=== PATIENT | male | born 1935 | race Caucasian/White ===

== ENCOUNTER 2016-07-22 12:57 | Inpatient (IN) | payer MEDICARE, OTHER ==
[~2016-07-22] VITALS: Ht 170.2 cm; Wt 67.0 kg
[~2016-07-22 12:57] MED LIST: AMLODIPINE10 MG OR; CEFTIN250 MG PO; FENOFIBRATE145 MG PO; FLOMAX0.4 MG OR; LORTAB 7.57.5 MG PO; NORCO1 TAB PO; NORVASC2.5 MG PO; PRILOSEC20 MG/CAP PO; UNKNOWN BP MED
--- NOTE | 2016-07-22 13:00 | NUR ---
ARRIVED VIA EMS ALERT AND RESPONSIVE
[2016-07-22 13:51] LABS: HEMATOCRIT 41.1 % (39.0-50.0); HEMOGLOBIN 13.5 g/dl (14.0-18.0); IMMATURE GRANULOCYTES 0.2 % (0.0-1.0); MEAN CELL VOLUME 94.7 fL CALC (80.0-100.0); MEAN CORPUSCULAR HGB 31.1 pG CALC (26.0-32.0); MEAN CORPUSCULAR HGB CONC 32.8 g/L CALC (32.0-36.0); NEUT# 3.78 thou/uL (1.82-7.42); RED BLOOD COUNT 4.34 mill/uL (4.70-6.10); RED CELL DISTRI WIDTH 13.2 % (11.5-15.5)
[2016-07-22] MEDS ORDERED: VICODIN HP1 TA1 PO (13:56)
[2016-07-22] MEDS ORDERED: SEROQUEL100 MG PO ×3 (13:57→13:59)
[2016-07-22] MEDS ORDERED: DONEPEZIL5 MG PO (14:00)
[2016-07-22] MEDS ORDERED: STOOL SOFTENER100 MG PO (14:01)
[2016-07-22 14:02] LABS: ALBUMIN 4.1 g/dL (3.2-5.0); ALKALINE PHOSPHATASE 46 u/l (38-126); ANION GAP 15 (6-22 (CALC)); BILIRUBIN, TOTAL 0.8 mg/dL (0.0-1.4); BUN 21 mg/dL (8-23); BUN/CREATININE RATIO 17 (12-20 (CALC)); CALCIUM 9.3 mg/dL (8.4-10.2); CARBON DIOXIDE 29 mmol/l (22-30); CHLORIDE 103 mmol/l (95-108); CREATININE 1.2 mg/dL (0.7-1.3); GFR 58 ML/MIN (>=60 (CALC)); GFR FOR AFR.AMER. > 60 ML/MIN (>=60 (CALC)); GLUCOSE 96 mg/dL (82-115); POTASSIUM 3.7 mmol/l (3.5-5.1); SGOT/AST 20 u/l (19-48); SGPT/ALT 21 u/l (11-66); SODIUM 143 mmol/l (137-146); TOTAL PROTEIN 7.9 g/dL (6.3-8.2)
--- NOTE | 2016-07-22 14:09 | NUR ---
PT TOLERATING IV FLUIDS WELL. ALERT AND PLEASANTLY CONFUSED. NOTED APPROX 2CM ROUND STAGE II ULCER TO COCCYX. SURROUNDIONG TISSUE PINK WITHOUT OPENING APPROX 8 CM IN DIAMETER
[2016-07-22 14:12] LABS: MYOGLOBIN 47 ng/mL (0 - 121)
[2016-07-22 14:18] LABS: PROTHROMBIN TIME 10.9 SECONDS (9.0-12.5)
[2016-07-22 14:55] LABS: URINE BILIRUBIN - DIPSTICK NEGATIVE (NEGATIVE); URINE BLOOD DIPSTICK NEGATIVE (NEGATIVE); URINE CLARITY CLEAR; URINE COLOR YELLOW; URINE GLUCOSE - DIPSTICK NEGATIVE (NEGATIVE); URINE KETONE NEGATIVE (NEGATIVE); URINE LEUK ESTERASE NEGATIVE (Negative); URINE NITRITE - DIPSTICK NEGATIVE (Negative); URINE PROTEIN - DIPSTICK NEGATIVE (NEG-TRACE)
--- NOTE | 2016-07-22 15:10 | NUR ---
PT SITTING UP IN BED. COMPLETED IV FLUIDS. VSS. NO C/O AT THIS TIME
--- NOTE | 2016-07-22 16:04 | NUR ---
AWARE OF PENDING ADMIT, AT BEDSIDE. NO DISTRESS NOTED
--- NOTE | 2016-07-22 17:02 | NUR ---
INCONTINENT OF URINE ,CLEANSED AND DRESSING APPLIED TO COCCYX. STATES SHE HAS BEEN PUTTING MEDICINE AND DUDERM TO AREA.
--- NOTE | 2016-07-22 17:32 | NUR ---
PT APPEARS NERVOUS AND AGITATED. AND NURSE ATTEMPTS TO CALM. MD AWARE
--- NOTE | 2016-07-22 18:58 | NUR ---
CALLED REPORT TO YESSENIA PARIKH. ADMINISTERED MED FOR ANXIETY ORDERED
--- NOTE | 2016-07-22 19:00 | NUR ---
ADMINISTERED 0.5MG ATIVAN IV ORDERED PER DR CABAN FOR AGITATION
--- NOTE | 2016-07-22 19:05 | NUR ---
REPORT RECEIVED CARE ASSUMED. PATIENT IS ADMITTED AND AWAITING TRANSPORT TO FLOOR. UNABLE TO TRANSPORT UNTIL RN ON MS HAVE COMPLETED THEIR CHANGE OF SHIFT.
--- NOTE | 2016-07-22 19:45 | NUR ---
PATIENT TO FLOOR VIA STRETCHER, MONITOR AND RN.
[2016-07-22 20:38] VITALS: BP 140/62
--- NOTE | 2016-07-22 20:38 | NUR ---
PT.ARRIVED TO FLOOR ACCOMPANIED BY ED NURSE; PT.UNABLE TO AMBULATE FROM STRETCHER TO BED; PT. MOVED TO WEIGH BED FOR PROPER WEIGHING AND ALARM MONITORING DUE TO WEAKNESS AND CONFUSION; PT.ASSESSED: LOC TO NAME/ ONLY, PT.IS CONFUSED ABOUT WHERE HE IS AND WHAT IS HAPPENING AROUND HIM, PT.V/S STABLE AT THIS TIME, LUNGS CLEAR, ABD.NON-TENDER AND ACTIVE, NEURO'S CLEAR AND STRONG PULSES, PT.SKIN IS CLEAR OTHER THAN PT. HAS ST.2 PRESSURE WOUND ON BUTTOCKS, I TOOK PICTURES, CLEANED OF INCONTINENCE AND COVERED W/DUODERM; BED ALARMS ON X2
--- NOTE | 2016-07-22 22:15 | NUR ---
PT.CONFUSED, WANTING TO LEAVE, ATTEMPTING TO LEAVE BED, PT.CALMED AND SETTLED BACK INTO BED, PROVIDED PO FLUIDS; WILL CONTINUE TO MONITOR
[2016-07-22 23:30] VITALS: BP 153/90
--- NOTE | 2016-07-23 00:30 | NUR ---
PT.CONFUSED, TRYING TO GET OUT OF BED, PT.PULLED OUT IV AND HAD A 3X3" BLOOD SPOT ON BED; PT. DOES NOT KNOW WHERE HE IS, PT.CLEANED OF INCONTINENCE, IV SITE CLEANED AND NEW SITE ACCESSED; PT.SETTLED BACK INTO BED THAT HAS BEEN CHANGED W/CLEAN GOWN; PT.ALSO REMOVED TELEMETRY LEADS/CONTACTS SO WE PLACED TELEMETRY ON BACK; WILL CONTINUE TO MONITOR.
--- NOTE | 2016-07-23 02:30 | NUR ---
PT.SETTING OFF BED ALARM ATTEMPTING "TO LEAVE," PT.TALKED TO, MEDICATED, OFFERED PO FLUIDS AND SETTLED BACK INTO BED, REPOSITIONED W/BED ALARMS X2; WILL CONTINUE TO MONITOR
--- NOTE | 2016-07-23 04:15 | NUR ---
PT.SLEEPING AT THIS TIME; NO APPARENT RESTLESSNESS OR DISTRESS AT THIS TIME; BED ALARM ON X2
[2016-07-23 04:30] VITALS: BP 160/67
[2016-07-23 06:20] LABS: HEMATOCRIT 45.1 % (39.0-50.0); HEMOGLOBIN 14.9 g/dl (14.0-18.0); MEAN CELL VOLUME 93.2 fL CALC (80.0-100.0); MEAN CORPUSCULAR HGB 30.8 pG CALC (26.0-32.0); RED BLOOD COUNT 4.84 mill/uL (4.70-6.10); RED CELL DISTRI WIDTH 13.1 % (11.5-15.5)
[2016-07-23 06:36] LABS: ANION GAP 18 (6-22 (CALC)); BUN 13 mg/dL (8-23); BUN/CREATININE RATIO 13 (12-20 (CALC)); CALCIUM 9.8 mg/dL (8.4-10.2); CARBON DIOXIDE 26 mmol/l (22-30); CHLORIDE 103 mmol/l (95-108); GFR > 60 ML/MIN (>=60 (CALC)); GFR FOR AFR.AMER. > 60 ML/MIN (>=60 (CALC)); GLUCOSE 80 mg/dL (82-115); MAGNESIUM 1.7 mg/dL (1.6-2.3); POTASSIUM 3.8 mmol/l (3.5-5.1); SODIUM 142 mmol/l (137-146)
--- NOTE | 2016-07-23 07:00 | NUR ---
SHIFT CHANGE REPORT FROM BERT CASAS SLEEPING IN SUPINE POSITION AT THIS TIME, BREATHING EVEN AND NON-LABORED, NO SIGN DISCOMFORT, TELE MONITOR IN PLACE, CALL AVELAR IN REACH, BED ALARM ON.
[2016-07-23 09:51] VITALS: BP 153/88
--- NOTE | 2016-07-23 10:14 | NUR ---
PT AWAKE, CONFUSED, RESPONDS INAPPROPRIATELY TO VERVAL STIMULI, SPOUSE VISITING AT THIS TIME, TEARY-EYED WHEN SPEAKING ABOUT THEIR PAST LIFE PT REFUSED MEAL, ATE CONTAINER OF APPLESAUCE, CALL AVELAR IN REACH.
--- NOTE | 2016-07-23 12:15 | NUR ---
SLEEPING AT THIS TIME, CALL AVELAR IN REACH, SPOUSE AT BEDSIDE.
--- NOTE | 2016-07-23 13:18 | NUR ---
RESTING IN BED, OFFERED MEAL, TOOK ONE BITE AND REFUSED TO EAT, WILL CONTINUE TO MONITOR.
[2016-07-23 16:00] VITALS: BP 154/91
--- NOTE | 2016-07-23 16:45 | NUR ---
RESTLESS AT THIS TIME CALLING OUT SPOUSE'S NAME, DISTRACTION TECHNIQUE USED AND PT IS CALM AND RELAXED NOW, WILL CONTINUE TO MONITOR, BED ALARM ON, CALL AVELAR IN REACH.
[2016-07-23 19:00] VITALS: BP 133/76
[2016-07-23 23:40] VITALS: BP 130/62
[2016-07-24 05:19] VITALS: BP 140/62
--- NOTE | 2016-07-24 07:00 | NUR ---
SHIFT CHANGE REPORT FROM BERT CASAS AWAKE AND ALERT, NO C/O DISCOMFORT, TELE MONITOR IN PLACE, BED ALARM ON, CALL AVELAR IN REACH.
[2016-07-24 07:53] VITALS: BP 144/91
[2016-07-24 12:04] VITALS: BP 132/83
--- NOTE | 2016-07-24 12:44 | NUR ---
RESTING IN BED, REFUSED MEAL, NO C/O DISCOMFORT, [employer] AT BEDSIDE, CALL AVELAR IN REACH.
[2016-07-24 15:17] VITALS: BP 120/61
--- NOTE | 2016-07-24 16:53 | NUR ---
RESTING N BED, ALL NEEDS MET/ADDRESSED, CALL AVELAR IN REACH.
--- NOTE | 2016-07-24 18:31 | NUR ---
SAT UP IN RECLINER ABOUT 5 HRS, ASSISTED BACK TO BED AT THIS TIME, BED ALARM ON, CALL AVELAR IN REACH.
[2016-07-24 19:32] VITALS: BP 116/64
--- NOTE | 2016-07-24 22:06 | NUR ---
PT.MEDICATED AND ASSESSED; NO EDEMA, LUNGS CLEAR, ACTIVE ABD SOUNDS SOFT AND NONDISTENDED, NO COUGH, PT.ASSISTED W/PO FLUIDS AND REPOSITIONED W/PILLOWS; PT.REORIENTED TO POC AND CALL LIGHT; WILL CONTINUE TO MONITOR; BED ALARM ON
[2016-07-24 23:50] VITALS: BP 150/82
--- NOTE | 2016-07-25 03:45 | NUR ---
BLADDER SCANNED PT DUE TO NO URINE OUTPUT THIS SHIFT; BLADDER SCAN DOCUMENTED @243ML; PT.ENCOURAGED TO DRINK MORE WATER @80 ADDITIONAL CC AND OFFERED JUICE OR SOMETHING, PT REFUSED ANY JUICE AND REFUSED MORE THAN 80CC OF WATER; URINAL USED AND PT.ENCOURAGED TO URINATE W/OUT SUCCESS; WILL CONTINUE TO MONITOR OUTPUT AND ENCOURAGE PO FLUIDS
--- NOTE | 2016-07-25 04:00 | NUR ---
ED CALLED TO REPORT TELEMETRY READING HR38; UPON ENTERING ROOM PT.WAS SLEEPING SOUNDLY, BUT AROSE TO MY RUBBING HIS ARM AND SPEAKING LOUDLY, PT.DENIED ANY PAIN OR DISTRESS AND DRANK PO FLUIDS @60CC, REPOSITIONED IN BED AND COVERED W/ADDITIONAL BLANKET, C/O COLD; CALLED ED HR REPORTED IN 80'S
[2016-07-25 04:15] VITALS: BP 134/68
--- NOTE | 2016-07-25 04:20 | NUR ---
ED CALLED TO REPORT HR IN 30'S AGAIN, PT.ASYMPTOMATIC AND SLEEPING SOUNDLY AGAIN; PT.AWOKEN, V/S ASSESSED @134/68 [id number] FLUCTUATING, EKG ORDERED AND SCANNED; PT.AGAIN ENCOURAGED PO FLUIDS AND ASSISTED TO USE URINAL
--- NOTE | 2016-07-25 07:00 | NUR ---
SHIFT CHANGE REPORT FROM BERT CASAS SLEEPING AT THIS TIME BUT RESPONDS TO VERBAL STIMULI, ORIENTED TO PERSONS ONLY, COOPERATIVE WITH CARE, NO C/O OR SIGN DISCOMFORT, CALL AVELAR IN REACH AND SPOUSE IN ROOM.
[2016-07-25 07:25] VITALS: BP 166/89
[2016-07-25 11:07] VITALS: BP 122/75
[2016-07-25 15:20] VITALS: BP 127/51
--- NOTE | 2016-07-25 16:02 | NUR ---
PT RESTING IN BED, INFORMED OF PROCEDURE, ED CARE DONE, COOPERATIVE AND EXPRESSES GRATITUDE TO STAFF, BED ALARM ON, CALL AVELAR IN REACH.
[2016-07-25 18:58] VITALS: BP 128/79
--- NOTE | 2016-07-25 20:20 | NUR ---
OOB TO BSC WITH ONE PERSON ASSISTANCE VOIDING CLEAR YELLOW URINE, BACK TO BED. CALL LIGHT IN REACH. A/O X3, VERY [place]IL[place]. WILL CONTINUE TO MONITOR.
--- NOTE | 2016-07-25 21:58 | NUR ---
PT CONTINUALLY REMOVING TELE, IS CONFUSED AND DOES NOT REORIENT. ORDER TO DC TELE RECEIVED FROM DR. HOWELL.
--- NOTE | 2016-07-25 23:00 | NUR ---
PT IS CONFUSED, TAKES GOWN OFF AND FIDGETS IN BED, HAS NOT ATTEMPTED TO GET OUT OF BED. PT REORIENTED TO TIME AND PLACE WITH NO SUCCESS, DOES NOT ANSWEAR QUESTIONS APROPRIATELY BED ALARM AND DOES NOT FOLLOW COMMANDS, BED ALARM IN PLACE. DOES NOT APPEAR TO BE IN ANY DISTRESS, RESPIRATIONS EVEN AND UNLABORED.
--- NOTE | 2016-07-25 23:41 | NUR ---
INCONTINENT OF LARGE AMOUNT OF URINE, ED CARE, BED BATH AND CLEAN LINEN APPLIED BY ARMAAN PHILLIPS.
--- NOTE | 2016-07-26 02:39 | NUR ---
PT IS RESTING WITH EYES CLOSED, RESPIRATIONS EVEN AND UNLABORED ON RA. BED ALARM IN PLACE.
[2016-07-26 04:30] VITALS: BP 136/72
--- NOTE | 2016-07-26 06:01 | NUR ---
PT IS YELLING OUT 'S NAME, REORIENTED TO TIME AND PLACE AND STOPS CALLING OUT BUT RESUMES YELLING OUT WHEN STAFF LEAVES PT'S ROOM.
--- NOTE | 2016-07-26 07:30 | NUR ---
SPOUSE IN TO ASSIST PT WITH BREAKFAST; PT A/ ORIENTED TO NAME ONLY;
--- NOTE | 2016-07-26 08:00 | NUR ---
PT INCONTINENT OF MODERATE AMOUNT OF URINE; ED CARE PROVIDED; CALL AVELAR WITHIN REACH; WILL CONTINUE TO MONITOR.
--- NOTE | 2016-07-26 09:00 | NUR ---
PT RESTING WITH EYES CLOSED; AROUSED EASILY TO VERBAL STIMULI; PT A/ ORIENTED TO NAME ONLY; REORIENTATION UNSUCCESSFUL; BED ALARM IN PLACE FOR SAFETY; CALL AVELAR WITHIN REACH; WILL CONTINUE TO MONITOR.
[2016-07-26 09:09] VITALS: BP 137/78
--- NOTE | 2016-07-26 11:35 | NUR ---
PT IN RECLINER WITH FEET ELEVATED; SPOUSE IN TO ASSIST WITH LUNCH; BED ALARM IN PLACE FOR SAFETY; CALL AVELAR WITHIN REACH; WILL CONTINUE TO MONITOR.
[2016-07-26] MEDS ORDERED: TRAMADOL HCL50 MG PO (12:11)
--- NOTE | 2016-07-26 16:00 | NUR ---
PT UP IN CHAIR RESTING WITH EYES CLOSED; BED ALARM IN PLACE FOR SAFETY; CALL AVELAR WITHIN REACH; WILL COTNINUE TO MONITOR.
--- NOTE | 2016-07-26 16:53 | NUR ---
REPORT CALLED TO [facility]
--- NOTE | 2016-07-26 16:53 | NUR ---
Discharge instructions given. Patient verbalizes understanding of same. Discharged in stable condition via Wheel[facility] to [facility] with *Other. All belongings sent with pt.
== END 2016-07-26 16:47 | DRG 641 ==
LOC: ENPENDDIS → ED 12:57 → ED-I 16:00 → ED 18:27 → MS2 18:28
PROVIDERS: Emergency Medicine; ADMIT Internal Medicine; ATTEND Internal Medicine
DX: R62.7 Adult failure to thrive (principal); L89.152 Pressure ulcer of sacral region, stage 2; F03.90 Unspecified dementia, unspecified severity, without behavioral disturbance, psychotic disturbance, mood disturbance, and anxiety; E86.0 Dehydration; I10 Essential (primary) hypertension; E78.5 Hyperlipidemia, unspecified; Z66 Do not resuscitate
CPT/HCPCS: J2060

== ENCOUNTER 2017-07-20 14:01 | Inpatient (IN) | payer MEDICARE, OTHER ==
[~2017-07-20] VITALS: Ht 170.2 cm; Wt 60.8 kg
[~2017-07-20 14:01] MED LIST changes: +DONEPEZIL5 MG PO; +SEROQUEL100 MG PO; +STOOL SOFTENER100 MG PO; +TRAMADOL HCL50 MG PO; +VICODIN HP1 TA1 PO
[2017-07-20 15:40] LABS: HEMATOCRIT 41.4 % (39.0-50.0); HEMOGLOBIN 13.1 g/dl (14.0-18.0); IMMATURE GRANULOCYTES 0.6 % (0.0-1.0); MEAN CELL VOLUME 93.9 fL CALC (80.0-100.0); MEAN CORPUSCULAR HGB 29.7 pG CALC (26.0-32.0); MEAN CORPUSCULAR HGB CONC 31.6 g/L CALC (32.0-36.0); NEUT# 15.95 thou/uL (1.82-7.42); RED BLOOD COUNT 4.41 mill/uL (4.70-6.10)
[2017-07-20 15:56] LABS: CREATININE 1.6 mg/dL (0.7-1.3); POTASSIUM 3.9 mmol/l (3.5-5.1)
[2017-07-20] MEDS ORDERED: ARTIFIC TEAR OU (16:44)
[2017-07-20] MEDS ORDERED: MULTIVITAMI9 PO (16:46)
[2017-07-20] MEDS ORDERED: DEPAKOTE250 MG PO (16:48)
[2017-07-20] MEDS ORDERED: PAIN & FEVER325 MG PO (16:49)
[2017-07-20 17:31] LABS: URINE BILIRUBIN - DIPSTICK NEGATIVE (NEGATIVE); URINE BLOOD DIPSTICK MODERATE (NEGATIVE); URINE COLOR YELLOW; URINE GLUCOSE - DIPSTICK NEGATIVE (NEGATIVE); URINE KETONE TRACE mg/dL (NEGATIVE); URINE LEUK ESTERASE NEGATIVE (NEGATIVE); URINE NITRITE - DIPSTICK NEGATIVE (Negative); URINE PH 5.5 (4.5-8.0); URINE PROTEIN - DIPSTICK TRACE mg/dL (NEG-TRACE)
[2017-07-20 17:34] LABS: URINE CLARITY CLEAR
[2017-07-20 17:42] LABS: URINE WBC 0-2 WBC/hpf (0-5)
[2017-07-20 19:11] VITALS: BP 118/67; BP 160/97
[2017-07-20 19:55] LABS: CREATININE 1.4 mg/dL (0.7-1.3); POTASSIUM 4.1 mmol/l (3.5-5.1)
[2017-07-20 21:55] VITALS: BP 159/96
[2017-07-20 22:10] VITALS: BP 135/91
[2017-07-20 23:58] VITALS: BP 142/70
[2017-07-21 04:26] VITALS: BP 133/87
[2017-07-21 06:09] LABS: HEMOGLOBIN 11.7 g/dl (14.0-18.0); MEAN CELL VOLUME 96.4 fL CALC (80.0-100.0); MEAN CORPUSCULAR HGB 29.7 pG CALC (26.0-32.0); MEAN CORPUSCULAR HGB CONC 30.8 g/L CALC (32.0-36.0); RED BLOOD COUNT 3.94 mill/uL (4.70-6.10); RED CELL DISTRI WIDTH 13.9 % (11.5-15.5)
[2017-07-21 06:24] LABS: CREATININE 1.4 mg/dL (0.7-1.3); POTASSIUM 4.4 mmol/l (3.5-5.1)
[2017-07-21 06:27] LABS: MAGNESIUM 2.5 mg/dL (1.6-2.3)
[2017-07-21 07:27] VITALS: BP 127/75
[2017-07-21 09:14] LABS: CHOLESTEROL HDL RATIO 4.5 (<4.4 (CALC))
[2017-07-21 11:15] VITALS: BP 152/79; BP 152/90
[2017-07-21 16:07] VITALS: BP 145/84
[2017-07-21 19:37] VITALS: BP 139/78
[2017-07-21 22:00] VITALS: BP 127/73
[2017-07-22 04:23] VITALS: BP 121/76
[2017-07-22 07:31] VITALS: BP 134/78
[2017-07-22 07:39] LABS: HEMATOCRIT 33.5 % (39.0-50.0); HEMOGLOBIN 10.7 g/dl (14.0-18.0); IMMATURE GRANULOCYTES 0.4 % (0.0-1.0); MEAN CELL VOLUME 92.8 fL CALC (80.0-100.0); MEAN CORPUSCULAR HGB 29.6 pG CALC (26.0-32.0); MEAN CORPUSCULAR HGB CONC 31.9 g/L CALC (32.0-36.0); NEUT# 8.11 thou/uL (1.82-7.42); RED BLOOD COUNT 3.61 mill/uL (4.70-6.10); RED CELL DISTRI WIDTH 13.4 % (11.5-15.5)
[2017-07-22 08:06] LABS: BUN 34 mg/dL (8-23); CARBON DIOXIDE 26 mmol/l (22-30); CHLORIDE 108 mmol/l (95-108); CREATININE 1.2 mg/dL (0.7-1.3); GFR 58 ML/MIN (>=60 (CALC)); GFR FOR AFR.AMER. > 60 ML/MIN (>=60 (CALC)); MAGNESIUM 1.9 mg/dL (1.6-2.3); POTASSIUM 3.6 mmol/l (3.5-5.1)
[2017-07-22 08:07] LABS: ALBUMIN 2.6 g/dL (3.2-5.0); SODIUM 144 mmol/l (137-146)
[2017-07-22 11:28] VITALS: BP 140/84
[2017-07-22 17:57] VITALS: BP 133/74
[2017-07-22 19:45] VITALS: BP 161/74
[2017-07-23 00:35] VITALS: BP 150/77
[2017-07-23 03:30] VITALS: BP 132/82
[2017-07-23 05:02] VITALS: BP 132/82
[2017-07-23 06:22] LABS: HEMATOCRIT 35.6 % (39.0-50.0); HEMOGLOBIN 11.5 g/dl (14.0-18.0); IMMATURE GRANULOCYTES 0.5 % (0.0-1.0); MEAN CELL VOLUME 91.5 fL CALC (80.0-100.0); MEAN CORPUSCULAR HGB 29.6 pG CALC (26.0-32.0); MEAN CORPUSCULAR HGB CONC 32.3 g/L CALC (32.0-36.0); NEUT# 6.82 thou/uL (1.82-7.42); RED BLOOD COUNT 3.89 mill/uL (4.70-6.10); RED CELL DISTRI WIDTH 13.2 % (11.5-15.5)
[2017-07-23 06:40] LABS: ALBUMIN 2.7 g/dL (3.2-5.0); BUN 23 mg/dL (8-23); CARBON DIOXIDE 26 mmol/l (22-30); CHLORIDE 110 mmol/l (95-108); CREATININE 1.2 mg/dL (0.7-1.3); GFR 58 ML/MIN (>=60 (CALC)); GFR FOR AFR.AMER. > 60 ML/MIN (>=60 (CALC)); POTASSIUM 3.9 mmol/l (3.5-5.1); SODIUM 147 mmol/l (137-146)
[2017-07-23 07:53] VITALS: BP 118/80
[2017-07-23 11:25] VITALS: BP 111/65
== END 2017-07-23 13:30 | DRG 640 ==
LOC: ED 14:01 → ED-I 17:46 → MS2 18:03 → ED 18:03 → MS2 07-23 13:30
PROVIDERS: Family Medicine; Internal Medicine Nephrology; Nurse Practitioner Family; ADMIT Internal Medicine; ATTEND Internal Medicine
DX: E87.0 Hyperosmolality and hypernatremia (principal); J18.9 Pneumonia, unspecified organism; I12.9 Hypertensive chronic kidney disease with stage 1 through stage 4 chronic kidney disease, or unspecified chronic kidney disease; N18.3 Chronic kidney disease, stage 3 (moderate); N17.9 Acute kidney failure, unspecified; E86.0 Dehydration; F03.91 Unspecified dementia, unspecified severity, with behavioral disturbance; D63.1 Anemia in chronic kidney disease; E78.5 Hyperlipidemia, unspecified; R62.7 Adult failure to thrive; M47.812 Spondylosis without myelopathy or radiculopathy, cervical region; R47.1 Dysarthria and anarthria; E87.8 Other disorders of electrolyte and fluid balance, not elsewhere classified

== ENCOUNTER → 2018-05-19 | Outpatient (REF) | payer MEDICARE, OTHER ==
[~2018-05-19] MED LIST changes: +ARTIFIC TEAR OU; +DEPAKOTE250 MG PO; +MULTIVITAMI9 PO; +PAIN & FEVER325 MG PO
[2018-05-19 21:49] LABS: BILIRUBIN, TOTAL 0.6 mg/dL (0.0-1.4); CREATININE 1.6 mg/dL (0.7-1.3); POTASSIUM 4.4 mmol/l (3.5-5.1); TOTAL PROTEIN 6.9 g/dL (6.3-8.2)
[2018-05-19 21:51] LABS: ALBUMIN 3.8 g/dL (3.2-5.0)
== END | disposition home or self-care (01) ==
LOC: LABSPEC-NH 21:06
PROVIDERS: ATTEND Internal Medicine
DX: R50.9 Fever, unspecified (principal)

== ENCOUNTER → 2018-05-20 | Outpatient (REF) | payer MEDICARE, OTHER ==
[2018-05-20 00:46] LABS: HEMATOCRIT 34.2 % (39.0-50.0); HEMOGLOBIN 11.5 g/dl (14.0-18.0); IMMATURE GRANULOCYTES 0.7 % (0.0-5.0); MEAN CORPUSCULAR HGB 31.6 pG CALC (26.0-32.0); MEAN CORPUSCULAR HGB CONC 33.6 g/L CALC (32.0-36.0); RED BLOOD COUNT 3.64 mill/uL (4.70-6.10); RED CELL DISTRI WIDTH 14.1 % (11.5-15.5)
[2018-05-20 00:47] LABS: URINE BILIRUBIN - DIPSTICK NEGATIVE (NEGATIVE); URINE BLOOD DIPSTICK NEGATIVE (NEGATIVE); URINE COLOR YELLOW; URINE GLUCOSE - DIPSTICK NEGATIVE (NEGATIVE); URINE KETONE NEGATIVE (NEGATIVE); URINE LEUK ESTERASE NEGATIVE (NEGATIVE); URINE NITRITE - DIPSTICK NEGATIVE (Negative); URINE PROTEIN - DIPSTICK TRACE mg/dL (NEG-TRACE); URINE UROBILINOGEN - DIPSTICK 0.2 E.U./dL (0.2)
== END | disposition home or self-care (01) ==
LOC: LABSPEC 00:20
PROVIDERS: ATTEND Internal Medicine
DX: N39.0 Urinary tract infection, site not specified (principal)

== ENCOUNTER 2019-02-02 21:29 | Inpatient (IN) | payer MEDICARE, OTHER ==
[~2019-02-02] VITALS: Ht 152.4 cm; Wt 61.0 kg
[2019-02-02 22:13] LABS: HEMATOCRIT 41.5 % (39.0-50.0); HEMOGLOBIN 13.1 g/dl (14.0-18.0); IMMATURE GRANULOCYTES 0.7 % (0.0-5.0); MEAN CELL VOLUME 96.1 fL CALC (80.0-100.0); MEAN CORPUSCULAR HGB 30.3 pG CALC (26.0-32.0); MEAN CORPUSCULAR HGB CONC 31.6 g/L CALC (32.0-36.0); NEUT# 14.85 thou/uL (1.82-7.42); RED BLOOD COUNT 4.32 mill/uL (4.70-6.10); RED CELL DISTRI WIDTH 14.6 % (11.5-15.5)
[2019-02-02 22:58] LABS: BILIRUBIN, TOTAL 0.5 mg/dL (0.0-1.4); CREATININE 2.1 mg/dL (0.7-1.3); POTASSIUM 3.7 mmol/l (3.5-5.1); TOTAL PROTEIN 6.2 g/dL (6.3-8.2)
[2019-02-02 23:10] LABS: ALBUMIN 2.8 g/dL (3.2-5.0)
[2019-02-02 23:43] LABS: URINE BLOOD DIPSTICK MODERATE (NEGATIVE); URINE COLOR YELLOW; URINE GLUCOSE - DIPSTICK NEGATIVE (NEGATIVE); URINE KETONE TRACE mg/dL (NEGATIVE); URINE PROTEIN - DIPSTICK 30 mg/dL (NEG-TRACE); URINE UROBILINOGEN - DIPSTICK 0.2 E.U./dL (0.2)
[2019-02-02 23:49] LABS: URINE LEUK ESTERASE SMALL (NEGATIVE); URINE NITRITE - DIPSTICK POSITIVE (Negative)
[2019-02-02 23:50] LABS: URINE BILIRUBIN - DIPSTICK NEGATIVE (NEGATIVE)
[2019-02-02 23:52] LABS: URINE EPITHELIAL CELLS MODERATE EPI/hpf (0-FEW); URINE RBC 25-50 RBC/hpf (0-5); URINE WBC 50-100 WBC/hpf (0-5)
[2019-02-02 23:53] LABS: URINE BACTERIA MANY hpf
[2019-02-03 03:55] VITALS: BP 117/71
[2019-02-03 05:17] LABS: IMMATURE GRANULOCYTES 0.9 % (0.0-5.0); MEAN CORPUSCULAR HGB 30.2 pG CALC (26.0-32.0); MEAN CORPUSCULAR HGB CONC 29.5 g/L CALC (32.0-36.0); NEUT# 18.58 thou/uL (1.82-7.42); RED BLOOD COUNT 4.3 mill/uL (4.70-6.10); RED CELL DISTRI WIDTH 14.6 % (11.5-15.5)
[2019-02-03 05:30] LABS: MEAN CELL VOLUME 102.3 fL CALC (80.0-100.0)
[2019-02-03 05:35] LABS: CREATININE 1.8 mg/dL (0.7-1.3); TOTAL PROTEIN 6.4 g/dL (6.3-8.2)
[2019-02-03 05:41] LABS: POTASSIUM 4.6 mmol/l (3.5-5.1)
[2019-02-03 08:00] VITALS: BP 94/51
[2019-02-03 10:30] VITALS: BP 135/65
[2019-02-03 15:00] VITALS: BP 121/66
[2019-02-03 19:27] VITALS: BP 123/75
[2019-02-04 00:35] VITALS: BP 143/80
[2019-02-04 05:15] VITALS: BP 128/79
[2019-02-04 05:18] LABS: HEMOGLOBIN 11.1 g/dl (14.0-18.0); IMMATURE GRANULOCYTES 0.7 % (0.0-5.0); MEAN CELL VOLUME 99.4 fL CALC (80.0-100.0); MEAN CORPUSCULAR HGB 30.7 pG CALC (26.0-32.0); MEAN CORPUSCULAR HGB CONC 30.8 g/L CALC (32.0-36.0); NEUT# 10.07 thou/uL (1.82-7.42); RED BLOOD COUNT 3.62 mill/uL (4.70-6.10)
[2019-02-04 05:31] LABS: CREATININE 1.8 mg/dL (0.7-1.3); MAGNESIUM 2.2 mg/dL (1.6-2.3)
[2019-02-04 08:00] VITALS: BP 119/72
[2019-02-04 11:05] VITALS: BP 126/77
[2019-02-04 18:43] VITALS: BP 136/78
[2019-02-04 23:48] VITALS: BP 142/89
[2019-02-05 03:37] VITALS: BP 132/78
[2019-02-05 05:25] LABS: HEMATOCRIT 36.1 % (39.0-50.0); HEMOGLOBIN 11.3 g/dl (14.0-18.0); IMMATURE GRANULOCYTES 0.9 % (0.0-5.0); MEAN CORPUSCULAR HGB 30.4 pG CALC (26.0-32.0); MEAN CORPUSCULAR HGB CONC 31.3 g/L CALC (32.0-36.0); NEUT# 4.98 thou/uL (1.82-7.42); RED BLOOD COUNT 3.72 mill/uL (4.70-6.10); RED CELL DISTRI WIDTH 15.3 % (11.5-15.5)
[2019-02-05 05:30] LABS: CREATININE 1.4 mg/dL (0.7-1.3); MAGNESIUM 2.1 mg/dL (1.6-2.3); POTASSIUM 3.8 mmol/l (3.5-5.1)
[2019-02-05 07:15] VITALS: BP 170/88
[2019-02-05 16:20] VITALS: BP 140/87
[2019-02-05 19:26] VITALS: BP 141/75
[2019-02-05 23:45] VITALS: BP 166/87
[2019-02-06] VITALS (7 sets, daily range): BP systolic 140–160; BP diastolic 62–106
[2019-02-06 06:36] LABS: HEMATOCRIT 35.4 % (39.0-50.0); HEMOGLOBIN 11.3 g/dl (14.0-18.0); IMMATURE GRANULOCYTES 0.7 % (0.0-5.0); MEAN CELL VOLUME 94.1 fL CALC (80.0-100.0); MEAN CORPUSCULAR HGB 30.1 pG CALC (26.0-32.0); MEAN CORPUSCULAR HGB CONC 31.9 g/L CALC (32.0-36.0); NEUT# 4.05 thou/uL (1.82-7.42); RED BLOOD COUNT 3.76 mill/uL (4.70-6.10)
[2019-02-06 07:04] LABS: CREATININE 1.4 mg/dL (0.7-1.3); POTASSIUM 3.7 mmol/l (3.5-5.1)
[2019-02-07] VITALS: BP 138/91
[2019-02-07 04:00] VITALS: BP 117/63
[2019-02-07 08:35] VITALS: BP 151/85
[2019-02-07 11:20] VITALS: BP 126/81
[2019-02-07 15:45] VITALS: BP 131/72
[2019-02-07 18:31] VITALS: BP 138/65
[2019-02-08] VITALS: BP 145/91
[2019-02-08 04:37] VITALS: BP 110/50
[2019-02-08 05:34] LABS: HEMATOCRIT 35.6 % (39.0-50.0); HEMOGLOBIN 11.4 g/dl (14.0-18.0); IMMATURE GRANULOCYTES 0.7 % (0.0-5.0); MEAN CELL VOLUME 93.9 fL CALC (80.0-100.0); MEAN CORPUSCULAR HGB 30.1 pG CALC (26.0-32.0); NEUT# 6.12 thou/uL (1.82-7.42); RED BLOOD COUNT 3.79 mill/uL (4.70-6.10)
[2019-02-08 06:03] LABS: ANION GAP 14 (6-22 (CALC)); BUN 16 mg/dL (8-23); BUN/CREATININE RATIO 13 (12-20 (CALC)); CARBON DIOXIDE 24 mmol/l (22-30); CHLORIDE 110 mmol/l (95-108); CREATININE 1.2 mg/dL (0.7-1.3); GFR 58 ML/MIN (>=60 (CALC)); GFR FOR AFR.AMER. > 60 ML/MIN (>=60 (CALC)); MAGNESIUM 1.9 mg/dL (1.6-2.3); POTASSIUM 3.5 mmol/l (3.5-5.1); SODIUM 144 mmol/l (137-146)
[2019-02-08 08:33] VITALS: BP 133/74
[2019-02-08 11:01] VITALS: BP 126/75
[2019-02-08 15:52] VITALS: BP 128/88
[2019-02-08 18:56] VITALS: BP 149/81
[2019-02-09] VITALS (12 sets, daily range): BP systolic 121–149; BP diastolic 64–89
[2019-02-10 00:25] VITALS: BP 156/90
[2019-02-10 04:05] VITALS: BP 167/81
[2019-02-10 07:29] VITALS: BP 159/98
[2019-02-10 11:13] VITALS: BP 172/73
[2019-02-10] MEDS ORDERED: TAMSULOSIN0.4 MG PO (13:59)
[2019-02-10] MEDS ORDERED: ROCEPHIN 1 GM1 GM IM (13:59)
== END 2019-02-10 15:57 | DRG 854 ==
LOC: ED 21:29 → ED-I 02-03 00:04 → ED 02-03 00:18 → MS2 02-03 00:19
PROVIDERS: Emergency Medicine; Nurse Practitioner Family; ADMIT Internal Medicine; ATTEND Internal Medicine
PROC: 0TC78ZZ Extirpation of Matter from Left Ureter, Via Natural or Artificial Opening Endoscopic (ICD-10-PCS; principal; 2019-02-09)
PROC: 0TC18ZZ Extirpation of Matter from Left Kidney, Via Natural or Artificial Opening Endoscopic (ICD-10-PCS; 2019-02-09)
DX: A41.59 Other Gram-negative sepsis (principal); N13.6 Pyonephrosis; E87.0 Hyperosmolality and hypernatremia; N17.9 Acute kidney failure, unspecified; I69.951 Hemiplegia and hemiparesis following unspecified cerebrovascular disease affecting right dominant side; R65.20 Severe sepsis without septic shock; E86.0 Dehydration; F03.90 Unspecified dementia, unspecified severity, without behavioral disturbance, psychotic disturbance, mood disturbance, and anxiety; I12.9 Hypertensive chronic kidney disease with stage 1 through stage 4 chronic kidney disease, or unspecified chronic kidney disease; N18.2 Chronic kidney disease, stage 2 (mild); E78.5 Hyperlipidemia, unspecified; R62.7 Adult failure to thrive; R58 Hemorrhage, not elsewhere classified; Z68.21 Body mass index [BMI] 21.0-21.9, adult; Z74.01 Bed confinement status
CPT/HCPCS: C1769; J0131; Q3014; Q9967; S0164